=== PATIENT | female | born 1950 | race Caucasian/White ===

== ENCOUNTER → 2016-07-05 | Outpatient (CLI) | payer OTHER | LOC: CIMAGING 10:16 | PROVIDERS: ATTEND Internal Medicine | DX: J01.30 Acute sphenoidal sinusitis, unspecified (principal); G31.9 Degenerative disease of nervous system, unspecified | CPT/HCPCS: 70450-PO ==

== ENCOUNTER → 2016-12-20 | Outpatient (CLI) | payer OTHER | LOC: CIMAGING 13:52 | PROVIDERS: ATTEND Internal Medicine | DX: M43.16 Spondylolisthesis, lumbar region (principal); M48.06 Spinal stenosis, lumbar region; M51.36 Other intervertebral disc degeneration, lumbar region | CPT/HCPCS: 72100-PO ==

== ENCOUNTER → 2017-01-30 | Outpatient (CLI) | payer OTHER | LOC: FIMAGING 16:04 | PROVIDERS: ATTEND Internal Medicine | DX: M51.36 Other intervertebral disc degeneration, lumbar region (principal); M51.35 Other intervertebral disc degeneration, thoracolumbar region; M51.34 Other intervertebral disc degeneration, thoracic region; M46.95 Unspecified inflammatory spondylopathy, thoracolumbar region; M46.96 Unspecified inflammatory spondylopathy, lumbar region; M48.062 Spinal stenosis, lumbar region with neurogenic claudication; M48.05 Spinal stenosis, thoracolumbar region; M48.04 Spinal stenosis, thoracic region ==

== ENCOUNTER → 2018-01-29 | Outpatient (CLI) | payer OTHER | LOC: CIMAGING 11:20 | PROVIDERS: ATTEND Internal Medicine | DX: R05 Cough (principal); J32.3 Chronic sphenoidal sinusitis; M51.34 Other intervertebral disc degeneration, thoracic region; M41.84 Other forms of scoliosis, thoracic region | CPT/HCPCS: 70450-PO; 71046-PO ==

== ENCOUNTER → 2018-03-20 | Outpatient (CLI) | payer OTHER | LOC: BRMIMAGING 14:42 | PROVIDERS: ATTEND Internal Medicine | DX: Z13.820 Encounter for screening for osteoporosis (principal); E21.3 Hyperparathyroidism, unspecified ==

== ENCOUNTER → 2018-09-28 | Outpatient (CLI) | payer OTHER | LOC: BHFA 09:00 ==